=== PATIENT | male | born 1965 | race Caucasian/White ===

== ENCOUNTER 2018-01-10 19:40 | Emergency (ER) | payer MEDICARE, OTHER ==
[2018-01-10] MEDS ORDERED: PROPARACAINE 0.5% OPHTH DROPS 15 ML BTL LEFT EYE STA (21:11)
--- NOTE | 2018-01-10 21:29 | ED ---
General Adult HPI - General Chief complaint: Eye Problems Stated complaint: FB in left eye Time Seen by Provider: 01/10/18 21:06 Source: patient Mode of arrival: ambulatory Limitations: no limitations - History of Present Illness Initial comments: 52-year-old male presents the emergency department for foreign body in eye. Patient states that he was cutting wood earlier this afternoon and felt like he got either a piece of wood or sawdust into his eye. Patient states it is making his eyes water as well as triggering his sinus congestion. He has been flushing the left eye with water for 3 hours now with minimal relief. He is worried that he scratched it or still has an object in his eye. Patient does state that he is up-to-date on his tetanus shot. - Related Data Home Medications Medication Instructions Recorded Confirmed HYDROcodone/IBUPROFEN 7.5-200 1 tab PO Q6HR PRN 06/16/16 01/10/18 [Vicoprofen] Previous Rx's Medication Instructions Recorded Tobramycin 0.3% Ophth Soln [Tobrex 1 drop LEFT EYE Q4H 5 Days #1 01/10/18 0.3% Ophth Soln] bottle Allergies Allergy/AdvReac Type Severity Reaction Status Date / Time No Known Allergies Allergy Verified 01/10/18 22:05 Review of Systems ROS Statement: Those systems with pertinent positive or pertinent negative responses have been documented in the HPI. ROS Other: All systems not noted in ROS Statement are negative. Past Medical History Additional Past Medical History / Comment(s): States may have sleep apnea, wakes up from his sleep gasping for air @ times. History of Any Multi-Drug Resistant Organisms: None Reported Past Surgical History: Orthopedic Surgery, Tonsillectomy Additional Past Surgical History / Comment(s): Back surgery in 1997, L1 & L 2. Past Anesthesia/Blood Transfusion Reactions: No Reported Reaction Additional Past Anesthesia/Blood Transfusion Reaction / Comment(s): Pt. states does not want general anesthesia, would like to have a local for this procedure. Past Psychological History: No Psychological Hx Reported Smoking Status: Current every day smoker Past Alcohol Use History: None Reported Past Drug Use History: Marijuana - Past Family History Mother Family Medical History: Cancer Additional Family Medical History / Comment(s): Stomach General Exam Limitations: no limitations General appearance: alert, in no apparent distress Head exam: Present: atraumatic, normocephalic, normal inspection Eye exam: Present: PERRL, EOMI, conjunctival injection. Absent: normal appearance, scleral icterus, nystagmus, periorbital swelling, periorbital tenderness Pupils: Present: normal accommodation ENT exam: Present: normal exam, mucous membranes moist Respiratory exam: Present: normal lung sounds bilaterally. Absent: respiratory distress, wheezes, rales, rhonchi, stridor Cardiovascular Exam: Present: regular rate, normal rhythm, normal heart sounds. Absent: systolic murmur, diastolic murmur, rubs, gallop, clicks Course Vital Signs 01/10/18 01/10/18 20:27 22:05 Temperature 97.7 F 98.0 F Pulse Rate 74 76 Respiratory 18 20 Rate Blood Pressure 134/67 130/56 O2 Sat by Pulse 99 99 Oximetry Procedures - Procedures Initial comment: Proparacaine was used to numb the left eye. Eye was examined with a light by a flipping the upper lid and looking in the lower lid as well as the corners of the eye. Fluorescein dye was then used in conjunction with the Wood's lamp to detect any abrasions. Patient did have an abrasion to the conjunctiva at 3:00 As well as 6:00. No abrasions to the cornea. No foreign body noted. Medical Decision Making - Medical Decision Making 52-year-old male patient presented to the emergency department for pain in the left eye. Patient states he was cutting wood around 3 PM when he noticed he got either a piece of wood or sawdust in his eye. Patient then spent the next few hours rinsing the eye and decided to present to the emergency department because it was still painful. Patient states he is up-to-date on his tetanus shot. A Wood's lamp and fluorescein dye were used to image the eye for any abrasions. He did have an abrasion at 3:00 and 6:00 in the left eye on the conjunctiva. No corneal abrasions. No foreign bodies noted on exam. Patient will start tobramycin drops and follow-up with his primary care doctor at his appointment which is coming up this week. Patient was also given ophthalmology consult if needed. Disposition Clinical Impression: Eye abrasion Disposition: HOME SELF-CARE Condition: Good Instructions: Abrasion (ED) Additional Instructions: Please follow up with ENT or primary care provider. Please use tobramycin drops as directed. If symptoms worsen or do not improve please return to the ER. Prescriptions: Tobramycin 0.3% Ophth Soln [Tobrex 0.3% Ophth Soln] 1 drop LEFT EYE Q4H 5 Days # 1 bottle Referrals: Alpesh German DO [Primary Care Provider] - 1-2 days Cj Partida MD [STAFF PHYSICIAN] - 1-2 days Time of Disposition: 21:50
[2018-01-10 22:06] VITALS: BP 130/56; PULSE 76; RESP 20; TEMP 98
== END 2018-01-10 22:05 | disposition home or self-care (01) ==
LOC: EC 19:40
DX: S05.02XA Injury of conjunctiva and corneal abrasion without foreign body, left eye, initial encounter (principal); F17.200 Nicotine dependence, unspecified, uncomplicated; W22.8XXA Striking against or struck by other objects, initial encounter
CPT/HCPCS: 99283

== ENCOUNTER → 2020-05-06 | Outpatient (CLI) | payer MEDICARE, OTHER ==
--- NOTE | 2020-05-06 13:00 | XR ---
EXAMINATION TYPE: XR chest 2V DATE OF EXAM: 05/06/2020 COMPARISON: NONE HISTORY: Annual physical exam, Z00.00 TECHNIQUE: Frontal and lateral views of the chest are obtained. FINDINGS: There is no focal air space opacity, pleural effusion, or pneumothorax seen. The cardiac silhouette size is within normal limits. The osseous structures are intact. Probable nipple shadows are noted incidentally. IMPRESSION: No acute cardiopulmonary process.
== END | disposition home or self-care (01) ==
LOC: RADXRMAIN 10:57
PROVIDERS: ATTEND Family Medicine
DX: Z00.00 Encounter for general adult medical examination without abnormal findings (principal)
CPT/HCPCS: 71046

== ENCOUNTER → 2020-09-17 | Outpatient (CLI) | payer MEDICARE, OTHER ==
--- NOTE | 2020-09-17 22:31 | MR ---
EXAMINATION TYPE: MR lumbar spine wo/w con DATE OF EXAM: 09/17/2020 COMPARISON: Lumbar spine x-ray June 18, 2013 HISTORY: Low back pain into left buttock and leg. Left hamstring and sciatica pain per order. TECHNIQUE: Multiplanar, multisequence images of the lumbar spine is performed without and with IV contrast, util izing 6 mL intravenous Gadavist FINDINGS: Sagittal images of the lumbar spine show vertebral body heights to remain satisfactory. Sli ght grade 1 retrolisthesis L5 on S1 is redemonstrated. Multilevel disc desiccation is present. Modera te disc space narrowing L5-S1 level. The conus medullaris is normal in position and signal ending at L1-L2 disc space level. The bone marrow signal intensity is within normal limits. Mild multilevel a nterior spurring. No suspicious postcontrast enhancement is seen. Axial images show T12-L1 level to appear within normal limits. Axial images at L1-L2 level show mild broad disc bulge and mild facet arthropathy bilaterally. There is mild effacement of the anterior thecal sac. Patent bilateral neural foramina. Axial images at L2-L3 level show mild broad disc bulge minimally effacing anterior thecal sac. Patent bilateral neural foramina. Axial images at L3-L4 level appear within normal limits. Axial images at L4-L5 level show mild broad-based posterior disc protrusion minimally effacing the an terior thecal sac, patent bilateral neural foramina. Mild facet arthropathy bilaterally. Axial images at the L5-S1 level shows moderate facet degenerative changes bilaterally. There is broad -based left paracentral/foraminal disc protrusion. Spinal canal is preserved and there is increased e pidural fat. There is advanced left-sided neural foraminal narrowing and encroachment on left L5 nerv e seen best sagittal image 4. Right-sided neural foramina shows moderate inferior narrowing. IMPRESSION: Subtle spondylolisthesis and most prominent degenerative change L5-S1 level. Eccentric di sc herniation causes advanced left-sided neural foraminal narrowing and effacement of the exiting lef t L5 nerve likely accounting for patient's radiculopathy type symptoms.
== END | disposition home or self-care (01) ==
LOC: RADMRIMAIN 15:53
PROVIDERS: ATTEND Family Medicine
DX: M48.061 Spinal stenosis, lumbar region without neurogenic claudication (principal); M51.26 Other intervertebral disc displacement, lumbar region; M43.17 Spondylolisthesis, lumbosacral region; M47.817 Spondylosis without myelopathy or radiculopathy, lumbosacral region
CPT/HCPCS: 72158; A9585